=== PATIENT | male | born 1960 | race Hispanic/Latino ===

== ENCOUNTER 2024-06-24 05:59 | Observation (INO) | payer BC ==
[2024-06-19 11:35] LABS: BASOPHILS # (AUTO) 0.09 K/uL (0.00-0.20); BASOPHILS % (AUTO) 0.8 % (0.0-5.0); EOSINOPHILS # (AUTO) 0.26 K/uL (0.00-0.70); EOSINOPHILS % (AUTO) 2.4 % (0.0-8.0); HEMATOCRIT 51.6 % (42-54); IMMATURE GRANULOCYTE ABSOLUTE 0.04 K/uL (0-1); LYMPHOCYTES # (AUTO) 2.3 K/uL (1.0-4.8); LYMPHOCYTES % (AUTO) 21.1 % (21.0-51.0); MEAN CORPUSCULAR HEMOGLOBIN 29.8 pg (27.0-33.0); MEAN CORPUSCULAR HGB CONC 32.4 g/dL (32.0-36.0); MONOCYTES # (AUTO) 0.8 K/uL (0.1-1.0); NEUTROPHILS # (AUTO) 7.3 K/uL (1.8-7.7); NEUTROPHILS % (AUTO) 68.3 % (40.0-77.0); PLATELET COUNT (AUTO) 246 K/uL (130-400); RED BLOOD CELL COUNT(AUTO) 5.61 MIL/uL (4.50-6.20); RED CELL DISTRIBUTION WIDTH 12.6 % (11.0-15.5); WHITE BLOOD COUNT (AUTO) 10.7 K/uL (4.8-10.8)
[2024-06-19 11:43] LABS: CREATININE 0.9 mg/dL (0.5-1.3); POTASSIUM 4.3 mmol/L (3.5-5.1)
[2024-06-19 12:10] LABS: INR 0.99 (0.85-1.15); PROTHROMBIN TIME 10.7 SEC (9.6-11.6)
[2024-06-19 12:11] LABS: PARTIAL THROMBOPLASTIN TIME 26.9 SEC (26.3-35.5)
[2024-06-19 12:20] LABS: APPEARANCE,URINE CLEAR (CLEAR); BILIRUBIN,URINE NEGATIVE (NEGATIVE); COLOR,URINE LIGHT-YELLOW (YELLOW); GLUCOSE, URINE (UA) >=1000 mg/dL (NEGATIVE); KETONES,URINE 5 mg/dL (NEGATIVE); LEUKOCYTE ESTERASE ,URINE NEGATIVE Leu/uL (NEGATIVE); NITRATE,URINE NEGATIVE (NEGATIVE); OCCULT BLOOD,URINE NEGATIVE (NEGATIVE); PROTEIN,URINE NEGATIVE (NEGATIVE); UROBILINOGEN,URINE 0.2 mg/dL (0.2-1.0)
[2024-06-19 12:27] LABS: ADD UA MICROSCOPIC YES
[2024-06-19 12:29] LABS: MUCUS,URINE RARE LPF (None Seen); RBC,URINE 0-1 /HPF (0-1); SQUAMOUS EPITHELIAL CELL,UR RARE /HPF (0-2); WBC,URINE 0-1 /HPF (0-1)
[2024-06-19 12:36] VITALS: BP 147/66; PULSE 88; RESP 16; TEMP 97.9
[~2024-06-24] VITALS: Ht 160 cm; Wt 75.8 kg
[2024-06-24] VITALS (30 sets, daily range): BP systolic 105–144; BP diastolic 63–87; PULSE 82–96; RESP 15–18; TEMP 97.3–98.3; O2SAT 96
[2024-06-24] MEDS: BUPIvacaine/PF 0.5% 30ML VIAL ONE
[2024-06-24] MEDS: ketOROlac 30MG VIAL (30MG/ML) ONE
[~2024-06-24 05:59] MED LIST: ASPI-1443 PO; CHOL100046 PO; DAPA5TAB PO; GLYB-173 PO; INSLAN SQ; LISI10TA24 PO; ROSU5TAB43 PO; TAMS-1 PO; VIBE75TA PO
[2024-06-24] MEDS ORDERED: SUCCINYLCHOLINE CHLORIDE 20 MG/ML 10 ML VIAL ONE (07:18)
[2024-06-24] MEDS ORDERED: MIDAZOLAM HCL 1 MG/ML 2ML VIAL ONE (07:18)
[2024-06-24] MEDS ORDERED: NEOSTIGMINE METHYLSULFATE 1MG/ML IV ONE (07:18)
[2024-06-24] MEDS ORDERED: GLYCOPYRROLATE 0.2 MG/ML 5 ML VIAL ONE (07:18)
[2024-06-24] MEDS ORDERED: proPOFol 10 MG/ML 20ML VIAL IV ONE (07:18)
[2024-06-24] MEDS ORDERED: rocuRONium bROMide 10MG/1ML 5ML VL ONE (07:18)
[2024-06-24] MEDS ORDERED: LIDOCAINE PF 100MG/5ML (2%) SYRINGE 5ML ONE (07:18)
[2024-06-24] MEDS ORDERED: ondanSETRON 4MG INJ ONE (07:18)
[2024-06-24] MEDS ORDERED: dexaMETHasone SOD PHOSPHATE 10MG/ML 1ML VIAL ONE (07:18)
[2024-06-24] MEDS ORDERED: FENTanyl CITRate PF 50 MCG/1 ML 2ML VIAL ONE ×2 (07:19→09:06)
[2024-06-24] MEDS ORDERED: ROPivacaine 0.5% 5MG/ML 30ML ONE (07:20)
[2024-06-24] MEDS: ceFAZolin SODIUM 2 GM VIAL ONE (07:27)
[2024-06-24] MEDS: 0.9%NACL 1000ML 1,000 ML IV ONE (07:27)
[2024-06-24] MEDS: TRANEXAMIC ACID 1000MG/10ML ONE (08:41)
[2024-06-24] MEDS ORDERED: ondanSETRON 4MG INJ IVP PRN (09:00)
[2024-06-24] MEDS ORDERED: PoTASSium chloRIDE 20MEQ/100ML 100 ML IV PRN (09:00)
[2024-06-24] MEDS ORDERED: PoTASSium chl 10% ELIXIR 20MEQ 20 MEQ/15 ML UDCUP PO PRN (09:00)
[2024-06-24] MEDS: GLYBURIDE/METFORMIN HCL 5/500MG TABLET PO SCH ×2 (09:00→20:51)
[2024-06-24] MEDS ORDERED: PoTASSium chloRIDE 20MEQ ER 20 MEQ ERTAB PO PRN (09:00)
[2024-06-24] MEDS ORDERED: DiphenhydrAMINE HCL 50 MG/ML VIAL IVP PRN (09:00)
[2024-06-24] MEDS ORDERED: CALCIUM CARB 500MG PO PRN (09:00)
[2024-06-24] MEDS ORDERED: FERROUS FUMARATE 324 MG TABLET PO PRN (09:00)
[2024-06-24] MEDS: ceFAZolin SODIUM 1 GM VIAL ONE (09:05)
[2024-06-24] MEDS ORDERED: MEPERIDINE-PF 25 MG/ML SYG ONE (10:29)
[2024-06-24] MEDS: MEPERIDINE-PF 25 MG/ML SYG ONE (11:34)
[2024-06-24] MEDS: HYDROcodone/APAP 5/325 1 TAB TABLET PO PRN (14:42)
[2024-06-24] MEDS: GABApentin 100 MG CAPSULE PO SCH (14:43)
[2024-06-24] MEDS: ceFAZolin SODIUM 1 GM VIAL IVPB SCH (14:43)
[2024-06-24] MEDS: ketOROlac 15MG/ML VIAL (15MG/ML) IV SCH (16:38)
[2024-06-24] MEDS: INSULIN humuLIN R 100 UNIT/ML 3ML SQ SCH (16:42)
[2024-06-24] MEDS: tamSULOsin HCL 0.4 MG CAP.ER.24H PO SCH (20:54)
[2024-06-24] MEDS: doCUSate SODIUM 100 MG CAP PO SCH (20:54)
[2024-06-24] MEDS: INSULIN GLARgine 100 UNITS/ML 10 ML VIAL SQ SCH (21:22)
[2024-06-25 03:45] VITALS: BP 114/56; PULSE 79; RESP 18; TEMP 98.2
[2024-06-25] MEDS: 0.9%NACL 1000ML 1,000 ML IV SCH (05:00)
[2024-06-25 05:20] LABS: HEMATOCRIT 37.3 % (42-54); MEAN CORPUSCULAR HEMOGLOBIN 29.3 pg (27.0-33.0); MEAN CORPUSCULAR HGB CONC 33.2 g/dL (32.0-36.0); MEAN CORPUSCULAR VOLUME 88.2 fL (79-99); RED BLOOD CELL COUNT(AUTO) 4.23 MIL/uL (4.50-6.20); RED CELL DISTRIBUTION WIDTH 12.7 % (11.0-15.5); WHITE BLOOD COUNT (AUTO) 11.2 K/uL (4.8-10.8)
[2024-06-25 06:22] LABS: CREATININE 0.9 mg/dL (0.5-1.3); POTASSIUM 3.8 mmol/L (3.5-5.1)
[2024-06-25 08:00] VITALS: BP 109/56; PULSE 87; RESP 20; TEMP 98.3; O2SAT 96
[2024-06-25] MEDS: Dapagliflozin Propanediol (Farxiga) 5 MG PO SCH (09:00)
[2024-06-25] MEDS ORDERED: ketOROlac 15MG/ML VIAL (15MG/ML) IV PRN (09:00)
[2024-06-25] MEDS: VIBEGRON 75 MG PO SCH (09:00)
[2024-06-25] MEDS: VITAMIN D3 25 MCG PO SCH (09:00)
[2024-06-25] MEDS: ASPIRIN 325MG EC TAB PO SCH (09:42)
[2024-06-25] MEDS: polyETHYLene GLYCol 3350 17 GM POWD.PACK PO SCH (09:44)
[2024-06-25] MEDS: atorVAStatin 20 MG TABLET PO SCH (09:50)
[2024-06-25] MEDS: CYCLOBENZAPRINE HCL 10 MG TABLET PO PRN (11:20)
[2024-06-25 12:00] VITALS: BP 131/65; PULSE 83; RESP 20; TEMP 98.1
[2024-06-25] MEDS: LISINOPRIL 10 MG TABLET PO SCH (15:14)
[2024-06-25] MEDS: traMADol HCL 50 MG TABLET PO PRN (15:27)
[2024-06-25 16:16] VITALS: BP 118/81; PULSE 88; RESP 18; TEMP 98.2
[2024-06-25 20:24] VITALS: BP 151/82; PULSE 93; RESP 19; TEMP 99
[2024-06-25 20:30] VITALS: O2SAT 99
[2024-06-26 00:03] VITALS: BP 157/78; PULSE 89; RESP 19; TEMP 98.1
[2024-06-26 03:39] VITALS: BP 128/75; PULSE 94; RESP 18; TEMP 98
[2024-06-26 08:00] VITALS: BP 153/79; PULSE 91; RESP 14; TEMP 98.6
[2024-06-26 09:30] VITALS: O2SAT 95
[2024-06-26 12:01] VITALS: BP 153/82; PULSE 94; RESP 15; TEMP 98.1
[2024-06-26] MEDS ORDERED: ASPI-891 PO (14:36)
[2024-06-26] MEDS ORDERED: HYDR-4060 PO (14:36)
[2024-06-26] MEDS ORDERED: CYCL-309 PO (14:36)
[2024-06-26] MEDS ORDERED: GABA100C PO (14:36)
[2024-06-26] MEDS ORDERED: DOCU-116 PO (14:36)
[2024-06-26] MEDS: LACTULOSE 20 GM/30 ML UDCUP PO ONE (15:01)
[2024-06-26 16:00] VITALS: BP 145/81; PULSE 95; RESP 14; TEMP 98.2
[2024-06-27] MEDS ORDERED: BisaCODYL 10 MG SUPP.RECT RC PRN (09:00)
== END 2024-06-26 18:45 | disposition home or self-care (01) ==
LOC: DAH 05:59 → DAHIP 06:00 → 4DH 12:30
PROVIDERS: ADMIT Student in an Organized Health Care Education/Training Program; ATTEND Student in an Organized Health Care Education/Training Program
DX: M17.11 Unilateral primary osteoarthritis, right knee (principal); M21.161 Varus deformity, not elsewhere classified, right knee; D62 Acute posthemorrhagic anemia; E11.9 Type 2 diabetes mellitus without complications; I10 Essential (primary) hypertension; E78.5 Hyperlipidemia, unspecified; R06.00 Dyspnea, unspecified; K59.00 Constipation, unspecified; K70.0 Alcoholic fatty liver; I25.10 Atherosclerotic heart disease of native coronary artery without angina pectoris; E66.01 Morbid (severe) obesity due to excess calories; Z68.29 Body mass index [BMI] 29.0-29.9, adult; Z79.899 Other long term (current) drug therapy; Z98.890 Other specified postprocedural states
CPT/HCPCS: 82040; 80048 ×2; 85025; 85610; 85730; 87086; 84134; 86140; 81001; 36415 ×2; 87641; 27447; 64447; 96376; 96365; 96366; 96375; 82948 ×12; 73560; 97161; 97116 ×5; 97530 ×6; 85027; 73552; G0378 ×53; A4663; J7120; A4215 ×2; A4649 ×3; A4600; J3010 ×2; J0690 ×4; J3490 ×3; J1100; J0330; J7030; J2001; J2250; J2704; J2405; J1885 ×3; J2710; J0665; J2175 ×2; J2795; J1815; C1713 ×2; C1776 ×2; A4930; A6255; A5120; A4223 ×2; A4222; A4221; A4216